=== PATIENT | male | born 1960 | race Caucasian/White ===

== ENCOUNTER → 2022-03-04 07:10 | Outpatient (CLI) | payer MEDICARE, SELFPAY ==
--- NOTE | ~2022-03-04 | MR_ITS ---
EXAMINATION: MR knee LT wo con DATE: 03/04/2022 07:58 INDICATION: Left knee pain. TECHNIQUE: Magnetic resonance imaging (MRI) of the left knee was performed without intravenous contra st. Sequences included axial PD-weighted FS FSE, coronal PD-weighted FSE and PD-weighted FS FSE, sagi ttal PD-weighted FSE, and sagittal T2-weighted FS FSE. COMPARISON: None. FINDINGS: Medial compartment: There is an undersurface horizontal tear of posterior horn and body of medial meniscus. There is blun ting of the free edge of the body segment. There is cartilage surface irregularity of tibial condyle. There is mild subchondral edema-like marrow signal intensity medially. Femoral cartilage is normal. Lateral compartment: There is a complex tear involving anterior horn, body, and posterior horn of lateral meniscus. There is cartilage surface irregularity of tibial condyle. Femoral cartilage is normal. Osteophytes are not ed. Patellofemoral compartment: There is cartilage surface irregularity of patellar medial facet and median ridge. Trochlear cartilag e is normal. There are tiny osteophytes. Ligaments and tendons: The anterior and posterior cruciate ligaments are normal. There are changes of prior sprains of media l collateral ligament and fibular collateral ligament characterized by thickening and increased signa l intensity proximally. There is mild patellar tendinopathy. Fluid: There is a moderate-sized knee joint effusion. There are 3 mm and 4 mm loose bodies in the knee joint . There is mild prepatellar and superficial infrapatellar bursitis. Subcutaneous varices are noted. IMPRESSION: 1. Mild tricompartmental chondrosis. 2. Tears of medial and lateral menisci. 3. Moderate-sized knee joint effusion with loose bodies. Reviewed, dictated and finalized at location A.
== END ==
PROVIDERS: PCP Emergency Medicine
DX: S83.282A Other tear of lateral meniscus, current injury, left knee, initial encounter (principal); S83.242A Other tear of medial meniscus, current injury, left knee, initial encounter; X58.XXXA Exposure to other specified factors, initial encounter; M25.462 Effusion, left knee; M23.42 Loose body in knee, left knee
CPT/HCPCS: 73721